=== PATIENT | female | born 1995 | race Caucasian/White ===

== ENCOUNTER → 2022-01-17 17:36 | Outpatient (CLI) | payer OTHER, SELFPAY ==
[2022-01-17 19:35] LABS: Anion Gap 12.4 mEq/L (5-15); Blood Urea Nitrogen 10 mg/dl (7-17); Calcium 9.5 mg/dl (8.4-10.2); Carbon Dioxide 27 mmol/L (22.0-30.0); Chloride 103 mmol/L (98-107); Estimated Glomerular Filt Rate 120 ml/min (>60); GFR (African American) 145 ML/MIN (>60); Glucose 88 mg/dl (74-100); Potassium 4.4 mmoL/L (3.5-5.1); Sodium 138 mmol/L (136-145)
[2022-01-17 19:52] LABS: Free T4 (Free Thyroxine) 1.23 ng/dl (0.78-2.19)
[2022-01-17 20:06] LABS: Thyroid Stimulating Hormone 2.05 uIU/mL (0.465-4.68)
== END ==
PROVIDERS: PCP Family Medicine; Visit Provider Family Medicine
DX: Z00.00 Encounter for general adult medical examination without abnormal findings (principal); E01.0 Iodine-deficiency related diffuse (endemic) goiter
CPT/HCPCS: 80048; 84439; 84443

== ENCOUNTER → 2022-06-29 06:19 | Outpatient (CLI) | payer OTHER, SELFPAY | PROVIDERS: PCP Nurse Practitioner Family; Visit Provider Nurse Practitioner Family | DX: J02.9 Acute pharyngitis, unspecified (principal); B96.89 Other specified bacterial agents as the cause of diseases classified elsewhere | CPT/HCPCS: 87070; 87077 ==

== ENCOUNTER → 2022-08-31 12:49 | Outpatient (CLI) | payer OTHER, SELFPAY ==
[2022-08-31 15:15] LABS: HCG,Quantitative 1608 mIU/ml (0-5.42)
[2022-09-03 12:08] LABS: Progesterone 9.5 ng/mL (.)
== END ==
PROVIDERS: PCP Family Medicine; Visit Provider Nurse Practitioner Obstetrics & Gynecology
DX: N92.6 Irregular menstruation, unspecified (principal); Z32.00 Encounter for pregnancy test, result unknown
CPT/HCPCS: 36415; 84144; 84702

== ENCOUNTER → 2022-09-13 14:15 | Outpatient (CLI) | payer OTHER, SELFPAY | PROVIDERS: PCP Family Medicine; Visit Provider Nurse Practitioner Obstetrics & Gynecology | DX: Z34.90 Encounter for supervision of normal pregnancy, unspecified, unspecified trimester (principal) | CPT/HCPCS: 87086 ==

== ENCOUNTER → 2022-09-14 13:13 | Outpatient (CLI) | payer OTHER, SELFPAY ==
[2022-09-14 18:12] LABS: Basophils # 0.1 K/mm3 (0-0.2); Basophils % 1.5 % (0.1-2.0); Eosinophils # 0.5 K/mm3 (0.0-0.4); Eosinophils % 6.3 % (0.1-12.0); Hematocrit 43.6 % (37.0-47.0); Hemoglobin 14.3 g/dL (12.2-16.2); Lymphocytes # 2.7 K/mm3 (0.7-4.5); Lymphocytes % 36.8 % (10-50); Mean Corpuscular HGB Conc 32.8 g/dL (31.8-35.4); Mean Corpuscular Hemoglobin 29.9 pg (27.0-31.2); Mean Platelet Volume 9.4 fl (7.4-10.4); Monocytes # 0.2 K/mm3 (0.1-1.0); Monocytes % 3.1 % (1.7-9.3); Neutrophils # 3.9 K/mm3 (1.8-7.8); Neutrophils % 52.4 % (37.0-80.0); Platelet Count 309 K/mm3 (142-424); Red Blood Count 4.78 M/mm3 (4.20-5.40); White Blood Count 7.4 K/mm3 (4.8-10.8)
[2022-09-16 10:02] LABS: Rubella Antibodies, IgG <0.90 index (Immune >0.99)
[2022-09-16 10:12] LABS: Rapid Plasma Reagin Ab Titer Non Reactive (NonRea<1:1)
[2022-09-16 11:11] LABS: HIV Screen 4th Generation wRfx Non Reactive (Non Reactive)
[2022-09-26 05:08] LABS: Hepatitis B Surface Antigen NEGATIVE; Hepatitis C Antibody NON REACTIVE
== END ==
PROVIDERS: PCP Family Medicine; Visit Provider Nurse Practitioner Obstetrics & Gynecology
DX: Z34.90 Encounter for supervision of normal pregnancy, unspecified, unspecified trimester (principal); Z3A.01 Less than 8 weeks gestation of pregnancy
CPT/HCPCS: 36415; 85025; 86593; 86703; 86762; 86850; 87340; 87380; G0432

== ENCOUNTER → 2022-09-26 13:07 | Outpatient (CLI) | payer OTHER, SELFPAY ==
--- NOTE | 2022-09-26 13:09 | US_ITS ---
FINAL REPORT CLINICAL HISTORY: for dates FINDINGS: Sonographic images of the pelvis were obtained. [place]-rump length measures 8.1 mm corresponding to 6 week 6 day gestation. No cardiac activity is noted. The ovaries are unremarkable. IMPRESSION: Apparent 6 weeks 6 day gestation. No cardiac activity identified. Close monitoring, follow-up, and quantitative beta HCG is recommended. Reviewed, Interpreted and Dictated by Tal Quiles MD Transcribed by Rosalie James Authenticated and [facility]
== END ==
PROVIDERS: PCP Family Medicine; Visit Provider Nurse Practitioner Obstetrics & Gynecology
DX: Z34.90 Encounter for supervision of normal pregnancy, unspecified, unspecified trimester (principal)
CPT/HCPCS: 76801

== ENCOUNTER → 2022-10-10 12:37 | Outpatient (CLI) | payer OTHER, SELFPAY ==
--- NOTE | 2022-10-10 12:37 | US_ITS ---
FINAL REPORT CLINICAL HISTORY: missed ab FINDINGS: Transvaginal sonographic images of the pelvis were obtained. The uterus measures 9.0 x 5.1 x 4.1 cm. The endometrium measures 8 mm, which is within normal limits. No uterine mass is identified. There is a small presumed calcification in the endometrium. The right ovary measures 2.9 cm in length and left ovary measures 2.2 cm in length. Normal blood flow seen to the ovaries. Small follicles are present. There is no evidence of free fluid. IMPRESSION: No acute abnormality identified. Reviewed, Interpreted and Dictated by Davin Morelos III, MD Transcribed by Jenaro Patterson Authenticated and [facility]
== END ==
PROVIDERS: PCP Family Medicine; Visit Provider Obstetrics & Gynecology
DX: O03.9 Complete or unspecified spontaneous abortion without complication (principal)
CPT/HCPCS: 76830

== ENCOUNTER → 2023-05-23 10:22 | Outpatient (CLI) | payer OTHER, SELFPAY ==
[2023-05-23 11:48] LABS: HCG,Quantitative 2691 mIU/ml (0-5.42)
[2023-05-24 09:15] LABS: Progesterone 7.5 ng/mL (.)
== END ==
PROVIDERS: PCP Family Medicine; Visit Provider Nurse Practitioner Obstetrics & Gynecology
DX: N92.6 Irregular menstruation, unspecified (principal)
CPT/HCPCS: 36415; 84144; 84702

== ENCOUNTER → 2023-06-14 08:19 | Outpatient (CLI) | payer OTHER, SELFPAY | LOC: LAB.DROPOF 06-15 08:20 | PROVIDERS: PCP Family Medicine; Visit Provider Nurse Practitioner Family | DX: R35.0 Frequency of micturition (principal) | CPT/HCPCS: 87086 ==

== ENCOUNTER 2023-06-28 20:27 | Emergency (ER) | payer OTHER, SELFPAY ==
[2023-06-28 20:29] VITALS: BP 116/71; PULSE 68; RESP 20; TEMP 36.5; O2SAT 98; BMI 34.7
--- NOTE | 2023-06-28 20:52 | PC.NURSE ---
Dr. Salcido in with patient at this time
--- NOTE | 2023-06-28 21:03 | ED_ITS ---
Discharge Plan Disposition Patient Disposition: Home, Self-Care Prescriptions Prescriptions: No Action pyridoxine (vitamin B6) [Vitamin B-6] 25 mg tablet 25 mg PO cephalexin 500 mg capsule 500 mg PO BID 10 Days Qty: 20 0RF prenat.vits,israel,[id number]-ujtdl Tablet 1 tab PO DAILY misoprostol [Cytotec] 200 mcg tablet 600 mcg PO QID 5 Days Qty: 60 0RF ibuprofen 600 mg tablet 600 mg PO TID PRN (Reason: pain) Qty: 30 1RF progesterone micronized [Prometrium] 200 mg capsule 200 mg vaginal HS Qty: 30 1RF Rx Instructions: insert vaginally at bedtime Referrals Follow up/Referrals: Tonny Baker MD [Primary Care Provider] - See instructions Activity Restrictions/Add. Instructions Additional Instructions/Restrictions: Your blood type is A+. Rhogam not indicated. You have a single living intrauterine preganancy consistent with dates. Return with bleeding more than one pad/ hour otherwise follow up with your product development consultant doctor. Clinical Impressions Clinical Impression: Threatened miscarriage Discharge ED Provider: Quan Salcido General Adult HPI General Chief complaint: Vaginal Bleeding Stated complaint: 10 wks , bleeding Time Seen by Provider: 06/28/23 20:50 Mode of Arrival: Ambulatory Source of Information: Patient Limitations: No Limitations Description of Symptoms (Recalled from ER Triage Doc. by RN): Patient reports she is 10 weeks and 3 days and has some upper abdominal cramping that started this morning and bleeding that has started today around 4:00pm. Patient states blood is bright red. This is patient's third 1 child at home and 1 miscarriage last September. History of Present Illness HPI narrative: Is a G3, at 10 weeks gestational age by ultrasound present today with vaginal bleeding and some abdominal discomfort. States that she had a miscarriage with her last earlier this year. Does not know her Rh status but to her knowledge has not needed RhoGAM in the past. Denies any urinary symptoms at the moment. Was recently on antibiotics for possible urinary tract infection. Had some significant bleeding earlier today but is significantly improved since that time. No significant abdominal pain loss of fluid etc. Related Data Home Medications Medication Instructions Recorded Confirmed prenat.vits,israel,egh-[id number] 1 tab PO DAILY 09/13/22 06/14/23 pyridoxine (vitamin B6) 25 mg 25 mg PO 06/14/23 06/14/23 tablet (Vitamin B-6) Previous Rx's Medication Instructions Recorded ibuprofen 600 mg tablet 600 mg PO TID PRN pain #30 tabs 10/02/22 misoprostol 200 mcg tablet 600 mcg PO QID 5 days #60 tabs 10/02/22 (Cytotec) progesterone micronized 200 mg 200 mg vaginal HS #30 caps 05/24/23 capsule (Prometrium) cephalexin 500 mg capsule 500 mg PO BID 10 days #20 caps 06/14/23 Allergies Allergy/AdvReac Type Severity Reaction Status Date / Time No Known Allergies Allergy Verified 06/14/23 08:24 [facility] Disclaimer: The information contained in this section may have been updated after the patient was seen, as this information can be updated by other users. Medical History Asthma Surgical History History of cholecystectomy Family History Grandmother Diabetes Cancer Hypertension Social History Smoking Status: Never smoker alcohol intake: never substance use type: denies use current occupational status: employed Travel in the last 8 weeks: None ([place] 12/2021) household members: significant other and children housing: house ROS Obtained: Yes All systems reviewed & no additional complaints except as documented Physical Exam General General appearance: alert Respiratory Respiratory exam: Present normal lung sounds bilaterally Cardiovascular Cardiovascular exam: Present regular rate; Absent tachycardia Abdominal Exam Abdominal exam: Present soft; Absent distention or tenderness Neurological Exam Neurological exam: Present alert Medical Decision Making Mike Inquiry Pt receiving controlled substance: No Vital Signs: 06/28/23 20:29 Temperature 97.7 F Temperature Source Oral Pulse Rate [Right Brachial] 68 Respiratory Rate 20 Blood Pressure [Right Arm] 116/71 Blood Pressure Mean [Right Arm] 86 Blood Pressure Source [Right Arm] Automatic Cuff Blood Pressure Position [Right Arm] Sitting 02 Sat by Pulse Oximetry 98 Oxygen Delivery Method Room Air Lab Data Lab results reviewed: Yes I reviewed the patient's lab results. Lab Results 06/28/23 21:30: Blood Type A Positive Orders (Tests/Meds): ORDERS Category Date Time Status ABO/RH Type Stat BBK 06/28/23 21:30 Completed POCUS Point of Care (ER Only) Stat Exams 06/28/23 20:50 Taken Medical Decision Narrative: 27-year-old female G3, at 10 weeks gestational age with a limited bedside ultrasound ruling in an intrauterine consistent with dates with normal heart rate and normal movements. Diagnosis is threatened . She is very hemodynamically stable no indication for any labs at the moment other than Rh status as we could not determine her age status in our system. She will follow-up with her FISHING VESSEL MATE doctor as previously instructed. Blood type A+; no indication for Rhogam. Very stable upon reassessment advised to f/u with product development consultant. Procedures Miscellaneous Procedure Procedure Performed: Limited OB ultrasound Indication: Positive test and vaginal bleeding Identified structures: [-Uterus -Left adnexa -Right adnexa -Pouch of Nitish] Findings: Uterus: Definite IUP consistent with dates heart rate 160 Right adnexa: No free fluid Left adnexa: No free fluid Cul de sac: No free fluid Impression: Single living IUP positive movements normal heart rate no obvious free fluid Images saved to permanent archive The study was technically adequate CPT Transabdominal: 71736-32 This study was performed by me, and I personally interpreted all images/videos. Based on my clinical judgement, these images were adequate and did not necessitate further imaging. Critical Care Critical Care Time Critical Care Time: No
--- NOTE | 2023-06-28 21:07 | PC.NURSE ---
Called Lab to draw RH type at this time, Marium from lab states she will come down.
[2023-06-28 22:21] VITALS: BP 120/78; PULSE 70; RESP 18; TEMP 36.7; O2SAT 99
== END 2023-06-28 22:22 | disposition home or self-care (01) ==
PROVIDERS: Emergency Provider Student in an Organized Health Care Education/Training Program; PCP Family Medicine
DX: O20.0 Threatened abortion (principal); Z3A.10 10 weeks gestation of pregnancy
CPT/HCPCS: 36415; 86900; 86901; 99284

== ENCOUNTER 2023-07-08 11:19 | Emergency (ER) | payer OTHER, SELFPAY ==
[2023-07-08 11:23] VITALS: BP 112/53; PULSE 102; RESP 18; TEMP 37.3; O2SAT 100; BMI 35.5
--- NOTE | 2023-07-08 11:29 | PC.NURSE ---
pt is 12 weeks . notified of symptoms
--- NOTE | 2023-07-08 11:57 | PC.NURSE ---
Dr. Salcido at BS to place US guided IV
--- NOTE | 2023-07-08 12:09 | ED_ITS ---
Discharge Plan Disposition Patient Disposition: Still a Patient Prescriptions Prescriptions: New promethazine 25 mg tablet 25 mg PO TID PRN (Reason: nausea and vomiting) 5 Days Qty: 20 0RF ondansetron 4 mg tablet,disintegrating 4 mg PO Q6H PRN (Reason: nausea and vomiting) 5 Days Qty: 20 0RF No Action pyridoxine (vitamin B6) [Vitamin B-6] 25 mg tablet 25 mg PO cephalexin 500 mg capsule 500 mg PO BID 10 Days Qty: 20 0RF prenat.vits,israel,edx-xjzf-kqsyf Tablet 1 tab PO DAILY misoprostol [Cytotec] 200 mcg tablet 600 mcg PO QID 5 Days Qty: 60 0RF ibuprofen 600 mg tablet 600 mg PO TID PRN (Reason: pain) Qty: 30 1RF progesterone micronized [Prometrium] 200 mg capsule 200 mg vaginal HS Qty: 30 1RF Rx Instructions: insert vaginally at bedtime Referrals Follow up/Referrals: Elsa Coronel APRN [Primary Care Provider] - See instructions Clinical Impressions Clinical Impression: COVID-19, Viral syndrome, First trimester Instructions Patient Instructions: DI for Diarrhea and Traveler's Diarrhea -- Adult, DI for Diarrhea and Traveler's Diarrhea -- Child, DI for Nausea -- Adult, DI for Nausea -- Child Discharge ED Provider: Quan Salcido General Adult HPI General Chief complaint: Nausea/Vomiting/Diarrhea Stated complaint: vomiting st ear ache congestion Time Seen by Provider: 07/08/23 11:48 Mode of Arrival: Ambulatory Source of Information: Patient Limitations: No Limitations Description of Symptoms (Recalled from ER Triage Doc. by RN): nausea and vomiting since this am. body aches History of Present Illness HPI narrative: Is a 27-year-old female who is G3, 11 weeks gestational age by first trimester ultrasound presents today with headache sore throat bilateral ear pain diffuse body aches myalgias and nausea vomiting. Denies any significant abdominal pain no vaginal bleeding. She was recently here with threatened miscarriage took care of her at that point her symptoms from that standpoint have dramatically improved. No loss of fluids no contractions etc. Related Data Home Medications Medication Instructions Recorded Confirmed prenat.vits,israel,hei-oipb-hmsol 1 tab PO DAILY 09/13/22 06/14/23 pyridoxine (vitamin B6) 25 mg 25 mg PO 12/21/23 12/21/23 tablet (Vitamin B-6) Previous Rx's Medication Instructions Recorded ibuprofen 600 mg tablet 600 mg PO TID PRN pain #30 tabs 10/02/22 misoprostol 200 mcg tablet 600 mcg PO QID 5 days #60 tabs 10/02/22 (Cytotec) progesterone micronized 200 mg 200 mg vaginal HS #30 caps 05/24/23 capsule (Prometrium) cephalexin 500 mg capsule 500 mg PO BID 10 days #20 caps 06/14/23 ondansetron 4 mg disintegrating 4 mg PO Q6H PRN nausea and 07/08/23 tablet vomiting 5 days #20 tabs promethazine 25 mg tablet 25 mg PO TID PRN nausea and 07/08/23 vomiting 5 days #20 tabs Allergies Allergy/AdvReac Type Severity Reaction Status Date / Time No Known Allergies Allergy Verified 06/14/23 08:24 [facility] Disclaimer: The information contained in this section may have been updated after the patient was seen, as this information can be updated by other users. Medical History Asthma Surgical History History of cholecystectomy Family History Grandmother Diabetes Cancer Hypertension Social History Smoking Status: Never smoker alcohol intake: never substance use type: denies use current occupational status: employed Travel in the last 8 weeks: None ([place] [place] 12/2021) household members: significant other and children housing: house ROS Obtained: Yes All systems reviewed & no additional complaints except as documented Physical Exam General General appearance: alert Respiratory Respiratory exam: Present normal lung sounds bilaterally; Absent respiratory distress Cardiovascular Cardiovascular exam: Present regular rate and normal rhythm Abdominal Exam Abdominal exam: Present soft; Absent distention or tenderness Neurological Exam Neurological exam: Present alert and oriented X3 Medical Decision Making Mike Inquiry Pt receiving controlled substance: No Vital Signs: 07/08/23 11:23 Temperature 99.2 F Temperature Source Oral Pulse Rate [Right Radial] 102 H Respiratory Rate 18 Blood Pressure [Right Arm] 112/53 L Blood Pressure Mean [Right Arm] 72 02 Sat by Pulse Oximetry 100 Oxygen Delivery Method Room Air Lab Data Lab results reviewed: Yes I reviewed the patient's lab results. Lab Results 07/08/23 12:05: WBC 5.0, RBC 4.22, Hgb 13.3, Hct 38.8, MCV 92.0, MCH 31.5 H, MCHC 34.3, RDW 13.6, Plt Count 202, MPV 8.9, Neut % (Auto) 84.9 H, Lymph % (Auto) 8.2 L, Camp % (Auto) 4.5, Eos % (Auto) 2.1, Baso % (Auto) 0.4, Neut # (Auto) 4.2, Lymph # (Auto) 0.4 L, Camp # (Auto) 0.2, Eos # (Auto) 0.1, Baso # (Auto) 0.0, Sodium 134 L, Potassium 4.1, Chloride 104, Carbon Dioxide 25, Anion Gap 9.1, BUN 5 L, Creatinine 0.50 L, Estimated Creat Clear 264, Estimated GFR 147, Est GFR ( Amer) 178, Glucose 100, Calcium 8.7, Total Bilirubin 0.4, AST 27, ALT 24, Alkaline Phosphatase 49, Total Protein 6.5, Albumin 3.8, Globulin 2.7, Albumin/Globulin Ratio 1.4 07/08/23 12:36: SARS-CoV-2 (PCR) Detected A, Influenza A Untype (PCR) Not detected, Influenza Type B (PCR) Not detected 07/08/23 12:05 07/08/23 12:05 Orders (Tests/Meds): ED MEDICATIONS Discontinued Medications Generic Name Dose Route Start Last Admin Trade Name Anthony PRN Reason Stop Dose Admin Acetaminophen 1,000 mg 07/08/23 12:08 07/08/23 12:26 Acetaminophen 1,000mg/100ml Vial IV 07/08/23 12:09 1,000 mg ONCE ONE Administration Lactated Ringer's 1,000 mls @ 999 mls/hr 07/08/23 12:15 07/08/23 12:26 Lactated Ringer's 1000 Ml Bag IV 07/08/23 13:15 999 mls/hr .Q1H1M YAMILETH Administration Ondansetron HCl 4 mg 07/08/23 12:08 07/08/23 12:26 Ondansetron 4mg/2ml Vial IV 07/08/23 12:09 4 mg ONCE ONE Administration ORDERS Category Date Time Status POCUS Point of Care (ER Only) Stat Exams 07/08/23 11:48 Taken CBC w/Auto Diff [Complete Blood Count Auto Diff] Stat Lab 07/08/23 12:05 Completed CMP [Comprehensive Metabolic Panel] Stat Lab 07/08/23 12:05 Completed Rapid PCR Covid and Flu A/B Stat Lab 07/08/23 12:36 Completed Medical Decision Narrative: 27-year-old female with above history consistent with a viral syndrome she is actively having nausea and vomiting at the bedside. Abdominal exam is benign. IV fluids IV Tylenol and IV Zofran will be administered. Limited bedside ultrasound demonstrated a single living intrauterine consistent with dates. Will reassess shortly. Reassessment 1:56 PM patient feeling significantly better is tolerating p.o. labs unremarkable COVID-19 was positive I discussed with the risk and benefits of Paxlovid antiviral therapy and with shared decision making we decided not to prescribe this medication side effects and drug drug interactions likely ou tweigh any benefit in this particular patient. She understands that theoretically in she could be high risk of serious complications of return with any worsening symptoms. She already has Unisom and vitamin B6 at home will prescribe Phenergan and Zofran for escalated antiemetics she was discharged in stable and improved condition. Procedures Miscellaneous Procedure Procedure Performed: Limited OB ultrasound Indication: Nausea and vomiting and pressure menstrual Identified structures: [-Uterus -Left adnexa -Right adnexa -Pouch of Nitish] Findings: Uterus: Definitive IUP consistent with dates heart rate 165 Right adnexa: No free fluid Left adnexa: No free fluid Cul de sac: No free fluid Impression: Single living IUP consistent with dates Images saved to permanent archive The study was technically adequate CPT Transabdominal: 53492-96 This study was performed by me, and I personally interpreted all images/videos. Based on my clinical judgement, these images were adequate and did not necessitate further imaging. Critical Care Critical Care Time Critical Care Time: No
[2023-07-08 12:14] LABS: Basophils % 0.4 % (0.1-2.0); Eosinophils # 0.1 K/mm3 (0.0-0.4); Eosinophils % 2.1 % (0.1-12.0); Hematocrit 38.8 % (37.0-47.0); Hemoglobin 13.3 g/dL (12.2-16.2); Lymphocytes # 0.4 K/mm3 (0.7-4.5); Lymphocytes % 8.2 % (10-50); Mean Corpuscular HGB Conc 34.3 g/dL (31.8-35.4); Mean Corpuscular Hemoglobin 31.5 pg (27.0-31.2); Mean Platelet Volume 8.9 fl (7.4-10.4); Monocytes # 0.2 K/mm3 (0.1-1.0); Monocytes % 4.5 % (1.7-9.3); Neutrophils # 4.2 K/mm3 (1.8-7.8); Neutrophils % 84.9 % (37.0-80.0); Platelet Count 202 K/mm3 (142-424); Red Blood Count 4.22 M/mm3 (4.20-5.40); Red Cell Distribution Width 13.6 % (11.5-17.5)
[2023-07-08 12:16] LABS: Chloride 104 mmol/L (98-107); Sodium 134 mmol/L (136-145)
[2023-07-08 12:17] LABS: Potassium 4.1 mmoL/L (3.5-5.1)
[2023-07-08 12:19] LABS: Alanine Aminotransferase 24 U/L (12-78); Aspartate Amino Transferase 27 U/L (14-36); Blood Urea Nitrogen 5 mg/dl (7-17); Creatinine Clearance Estimated 264 mL/min (50-200); Estimated Glomerular Filt Rate 147 ml/min (>60); GFR (African American) 178 ML/MIN (>60)
[2023-07-08 12:20] LABS: Albumin Level 3.8 g/dl (3.5-5.0); Albumin/Globulin Ratio 1.4 (1.1-1.8); Alkaline Phosphatase 49 U/L (38-126); Anion Gap 9.1 mEq/L (5-15); Bilirubin,Total 0.4 mg/dl (0.2-1.3); Calcium 8.7 mg/dl (8.4-10.2); Carbon Dioxide 25 mmol/L (22.0-30.0); Globulin 2.7 g/dL (1.3-3.2); Glucose 100 mg/dl (74-100); Total Protein,Serum 6.5 g/dl (6.3-8.2)
[2023-07-08] MEDS: ACETAMINOPHEN 1,000MG/100ML VIAL 1000 MG IV (12:26)
[2023-07-08] MEDS: LACTATED RINGERS 1000ML 1,000 ML 999 ML IV (12:26)
[2023-07-08] MEDS: ONDANSETRON 4MG/2ML VIAL 4 MG IV (12:26)
[2023-07-08 12:46] LABS: Influenza A, PCR Not Detected (NotDetected); Influenza B, PCR Not Detected (NotDetected)
[2023-07-08 13:19] LABS: Coronavirus 19, PCR Detected (NotDetected)
[2023-07-08 14:00] VITALS: BP 102/80; PULSE 93; RESP 20; TEMP 37.1; O2SAT 99
== END 2023-07-08 14:03 | disposition home or self-care (01) ==
PROVIDERS: Emergency Provider Student in an Organized Health Care Education/Training Program; PCP Nurse Practitioner Family
DX: O98.511 Other viral diseases complicating pregnancy, first trimester (principal); U07.1 COVID-19; Z3A.11 11 weeks gestation of pregnancy; R11.2 Nausea with vomiting, unspecified; J45.909 Unspecified asthma, uncomplicated
CPT/HCPCS: 80053; 85025; 87636; 96361; 96374; 96375; 99284; J0131; J2405